=== PATIENT | female | born 1965 | race Caucasian/White ===

== ENCOUNTER 2021-10-13 02:59 | Emergency (ER) | payer OTHER ==
[~2021-10-13 02:59] MED LIST: NORFLEX 100 MG100 MG PO; PREDNISONE 50 M50 MG PO; VENTOLIN HFA 66.7 GM INH
[2021-10-13 03:23] LABS: HEMOGLOBIN 12.8 gm/dl (12.3-15.3); RED BLOOD COUNT 4.21 M/UL (4.00-5.10); WHITE BLOOD COUNT 8.5 K/UL (4.5-11.0)
[2021-10-13 03:58] LABS: BUN/CREATININE RATIO 20 (0-10)
[2021-10-13] MEDS ORDERED: MEDROL DOSEPAK 24 MG PO (09:49)
[2021-10-13] MEDS ORDERED: CYCLOBENZAPRINE10 MG PO (09:51)
== END 2021-10-13 10:26 | disposition home or self-care (01) ==
LOC: ER1 02:59
DX: R91.1 Solitary pulmonary nodule (principal); R07.9 Chest pain, unspecified; M54.12 Radiculopathy, cervical region; F17.200 Nicotine dependence, unspecified, uncomplicated
CPT/HCPCS: 71045; 72125; 80053; 82550; 82553; 83874; 84484; 85025; 85379; 93005; 96374; 96375; 99285; J1100; J1885; J2405; Q9967